=== PATIENT | male | born 1980 | race Caucasian/White ===

== ENCOUNTER → 2024-06-29 09:50 | Outpatient (REF) | payer BC, SELFPAY | LOC: RAD 09:50 | PROVIDERS: ATTENDING PHYSICIAN Internal Medicine; FAMILY PHYSICIAN Nurse Practitioner Family | DX: R19.8 Other specified symptoms and signs involving the digestive system and abdomen (principal); R15.2 Fecal urgency | CPT/HCPCS: 74019 ==